=== PATIENT | male | born 1950 | race Caucasian/White ===

== ENCOUNTER 2017-10-29 21:07 | Emergency (ER) | payer OTHER ==
[~2017-10-29] VITALS: Ht 180.3 cm; Wt 118.4 kg
[~2017-10-29 21:07] MED LIST: ALL100 PO; BNC40 PO; CMD75 PO; ENOX120I SQ; GLC500 PO; HYDC25 PO; POTA-335 PO; [UNRECOGNIZED DRUG - CODE] PO
[2017-10-29 21:10] VITALS: TEMP 36.5; Ht 180.3 cm; Wt 118.4 kg
[2017-10-29 21:50] LABS: BASO % 0.5 %; BASO ABS # 0.04 K/uL (0-0.2); EOS % 2.2 %; EOS ABS # 0.17 K/uL (0-0.5); IG# 0.01 K/uL (0.00-0.02); LYMPH % 30.4 %; LYMPH ABS # 2.32 K/uL (1.2-3.4); MEAN CELL VOLUME 96.6 fL (80-100); MEAN CORPUSCULAR HEMOGLOBIN 34.5 pg (25-34); MEAN CORPUSCULAR HGB CONC 35.7 g/dl (32-36); MEAN PLATELET VOLUME 9.9 fL (7.4-10.4); MONO % 10.2 %; MONO ABS # 0.78 K/uL (0.11-0.59); NEUT % 56.6 %; NEUT ABS # 4.31 K/uL (1.4-6.5); PLATELET COUNT 182 K/uL (130-400); RED CELL DISTRIBUTION WIDTH CV 13.1 % (11.5-14.5); RED CELL DISTRIBUTION WIDTH SD 46.2 fL (36.4-46.3); WHITE BLOOD COUNT 7.63 K/uL (4.8-10.8)
[2017-10-29 22:07] LABS: INR 1.9 (0.9-1.1); PTT PATIENT 29.3 SECONDS (21.0-31.0)
[2017-10-29 22:09] LABS: ALBUMIN 3.8 gm/dl (3.4-5.0); ALT/SGPT 39 U/L (12-78); BLOOD UREA NITROGEN 13 mg/dl (7-18); CALCIUM 8.4 mg/dl (8.5-10.1); CARBON DIOXIDE 32 mmol/L (21-32); CREATININE 1.24 mg/dl (0.60-1.40); GLUCOSE 124 mg/dl (70-99); LIPASE 309 U/L (73-393); POTASSIUM 3.4 mmol/L (3.5-5.1); SODIUM 140 mmol/L (136-145)
[2017-10-29 22:15] LABS: ALKALINE PHOSPHATASE 41 U/L (45-117); AST/SGOT 44 U/L (15-37); CKMB 1.6 ng/ml (0.5-3.6); TOTAL PROTEIN 7.4 gm/dl (6.4-8.2)
--- NOTE | 2017-10-29 22:35 | DIAGNOSTIC IMAGING REPORT ---
CHEST ONE VIEW PORTABLE HISTORY: Evaluate Fever/Sepsis COMPARISON: Chest 06/07/2011. FINDINGS: The heart is mildly enlarged. The right lung is clear. There are a few linear density at the left lung base suggesting scarring or atelectasis. No focal lung consolidations to suggest pneumonia. No pleural effusions. No pneumothorax. IMPRESSION: Mild cardiomegaly and left basilar subsegmental atelectasis/scarring. Electronically signed by: Adama Cotto M.D. 10/29/2017 10:34 PM Dictated Date/Time: 10/29/2017 10:32 PM
[2017-10-29] MEDS ORDERED: OPTIRAY 320 IV PRN (23:45)
[2017-10-29] MEDS ORDERED: GLC/500 PO (23:45)
[2017-10-29] MEDS ORDERED: SILD100T PO (23:45)
[2017-10-29] MEDS ORDERED: ROSU5TAB PO (23:45)
[2017-10-29] MEDS ORDERED: CLB/200 PO (23:45)
[2017-10-29] MEDS ORDERED: RANI150T3 PO (23:45)
[2017-10-29] MEDS ORDERED: POTA1CAP53 PO (23:45)
[2017-10-29] MEDS ORDERED: ALL300 PO (23:45)
[2017-10-29] MEDS ORDERED: BNC40 PO (23:45)
[2017-10-29] MEDS ORDERED: WARF-237 PO ×2 (23:45)
[2017-10-29] MEDS ORDERED: MULT-190 PO (23:45)
[2017-10-29] MEDS ORDERED: HYDR25TA4 PO (23:45)
[2017-10-29] MEDS ORDERED: NEBI20TA2 PO (23:45)
[2017-10-29] MEDS ORDERED: OMEG100046 PO (23:45)
[2017-10-30] MEDS ORDERED: AMPICILLIN/SULBACTAM SOD INJ 3,000 MG in SODIUM CHLORIDE 0.9% 100ML 100 ML IV ONE (00:30)
[2017-10-30] MEDS ORDERED: AMOX875T PO (00:34)
[2017-10-30] MEDS ORDERED: ONDA4TAB10 SL (00:34)
--- NOTE | 2017-10-30 00:35 | EMERGENCY ROOM VISIT NOTE ---
History Report prepared by Alecia: Galen Peng Under the Supervision of: Dr. Guillaume Estrada D.O. First contact with patient: 21:18 Chief Complaint: CHEST PAIN Stated Complaint: CHEST PAIN, NAUSEA, SHORTNESS OF BREATH History of Present Illness The patient is a 67 year old male who presents to the Emergency Room with complaints of resolved chest pain that started at 1930. He rates his discomfort as a 5/10 in severity. The patient states that after eating dinner, he developed chest tightness that lasted for 15 minutes. He reports that his pain then became generalized and he developed neck pain. The patient reports he also developed nausea and shortness of breath. He reports that he took his blood pressure and heart rate, which were 180/100 and 55, respectively. The patient states he is now experiencing numbness in left cheek and left eye, but denies any vision changes. He also denies any chest pain with exertion earlier today since he was able to swim for 45 minutes this morning without any problems. 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 He reports that his last INR was 1.9 last week. Source of History: patient Onset: 1929 Position: chest Symptom Intensity: 5/10 Quality: other (tightness) Timing: resolved Associated Symptoms: + neck pain, + SOB, + nausea, + numbness Note: Associated symptoms: increased blood pressure, decreased heart rate Review of Systems See HPI for pertinent positives & negatives. A total of 10 systems reviewed and were otherwise negative. 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 Social History Smoking Status: Former Smoker Marital Status: Housing Status: lives with significant other Occupation Status: retired Current/Historical Medications Scheduled Allopurinol (Allopurinol), 300 MG PO QAM Amoxicillin & Pot Clavulanate (Augmentin 875-125 mg), 875 MG PO BID Celecoxib (CeleBREX), 200 MG PO DAILY Hydrochlorothiazide (Hctz), 25 MG PO QAM Metformin Hcl (Glucophage), 500 MG PO DAILY Nebivolol Hcl (Bystolic), 20 MG PO DAILY Ocuvite Preservision (Ocuvite Preservision), 1 TAB PO DAILY Olmesartan Medoxomil (Benicar), 40 MG PO DAILY Drain-3 Fatty Acids (Drain 3), 1 CAP PO BID Ondasetron Odt (Zofran Odt), 4 MG SL Q6H Potassium Chloride (Klor-Con Sprinkle), 20 MEQ PO DAILY Rosuvastatin Calcium (Crestor), 5 MG PO DAILY Warfarin Sod (Coumadin), 10 MG PO 5XWK Warfarin Sod (Coumadin), 5 MG PO 2XWK Scheduled PRN Ranitidine Hcl (Zantac), 150 MG PO DIRECTED PRN for HEARTBURN Sildenafil Citrate (Viagra), 100 MG PO PRN PRN for PRN Allergies Coded Allergies: Sulfa Drugs (Verified Allergy, Intermediate, RASH,SWELLING, 10/29/17) Physical Exam Vital Signs Date Time Temp Pulse Resp B/P (MAP) Pulse Ox O2 Delivery O2 Flow Rate FiO2 10/30/17 01:12 51 10/30/17 01:01 50 16 182/97 97 Room Air 10/30/17 00:00 50 20 197/83 96 Room Air 10/29/17 23:34 52 20 186/97 97 Room Air 10/29/17 23:00 53 19 182/91 96 Room Air 10/29/17 22:30 54 16 159/92 95 Room Air 10/29/17 22:05 50 14 159/88 96 Room Air 10/29/17 21:47 54 10/29/17 21:27 97 Room Air 10/29/17 21:10 36.5 52 20 205/89 96 Room Air Physical Exam VITAL SIGNS: were reviewed as above. GENERAL:Non-toxic in appearance. SKIN: Warm dry and pink. HEAD: Normocephalic and atraumatic. OROPHARYNX: Is clear and moist NECK: Supple without lymphadenopathy or meningismus. LUNGS: clear. HEART: Regular rate and rhythm. ABDOMEN: Soft and nontender. EXTREMITIES: Warm and well perfused. NEUROLOGICALLY: Awake alert and oriented without focal deficit. Cranial nerves 2 -12 are intact. There is no pronator drift. Cerebellar testing is within normal limits. There is no nystagmus. There is no facial droop. Speech is clear. Vision is grossly normal. MUSCULOSKELETAL: Good muscle tone. No evidence of trauma. Medical Decision & Procedures ER Provider Diagnostic Interpretation: Radiology results as stated below per my review and radiologist interpretation: CHEST ONE VIEW PORTABLE HISTORY: Evaluate Fever/Sepsis COMPARISON: Chest 06/07/2011. FINDINGS: The heart is mildly enlarged. The right lung is clear. There are a few linear density at the left lung base suggesting scarring or atelectasis. No focal lung consolidations to suggest pneumonia. No pleural effusions. No pneumothorax. IMPRESSION: Mild cardiomegaly and left basilar subsegmental atelectasis/scarring. Electronically signed by: Adama Cotto M.D. 10/29/2017 10:34 PM Dictated Date/Time: 10/29/2017 10:[address] HEAD: No acute intracranial abnormality identified. Mild chronic small vessel ischemic disease and cerebral volume loss. Bilateral lens implants. Mild mucosal thickening in the ethmoid air cells. Mild atherosclerotic calcifications of the intracranial vasculature. Radiologist: Nader Douglas M.D. . CT FACIAL: Fat stranding and soft tissue swelling over the left maxilla and left mandible, nonspecific. No abscess identified. No significant lymphadenopathy. Nonspecific mild skin thickening in the right frontal region. Mild mucosal thickening in the ethmoid air cells. Mild mucosal thickening in the left maxillary sinus. Atherosclerotic calcifications of the carotid arteries. Radiologist: Nader Pickens M.D. Laboratory Results 10/29/17 21:25 Red Blood Count 4.35, Mean Corpuscular Volume 96.6, Mean Corpuscular Hemoglobin 34.5, Mean Corpuscular Hemoglobin Concent 35.7, Mean Platelet Volume 9.9, Neutrophils (%) (Auto) 56.6, Lymphocytes (%) (Auto) 30.4, Monocytes (%) (Auto) 10.2, Eosinophils (%) (Auto) 2.2, Basophils (%) (Auto) 0.5, Neutrophils # (Auto ) 4.31, Lymphocytes # (Auto) 2.32, Monocytes # (Auto) 0.78, Eosinophils # (Auto ) 0.17, Basophils # (Auto) 0.04 10/29/17 21:25 Test 10/29/17 21:25 White Blood Count 7.63 K/uL (4.8-10.8) Red Blood Count 4.35 M/uL (4.7-6.1) Hemoglobin 15.0 g/dL (14.0-18.0) Hematocrit 42.0 % (42-52) Mean Corpuscular Volume 96.6 fL (80-100) Mean Corpuscular Hemoglobin 34.5 pg (25-34) Mean Corpuscular Hemoglobin Concent 35.7 g/dl (32-36) Platelet Count 182 K/uL (130-400) Mean Platelet Volume 9.9 fL (7.4-10.4) Neutrophils (%) (Auto) 56.6 % Lymphocytes (%) (Auto) 30.4 % Monocytes (%) (Auto) 10.2 % Eosinophils (%) (Auto) 2.2 % Basophils (%) (Auto) 0.5 % Neutrophils # (Auto) 4.31 K/uL (1.4-6.5) Lymphocytes # (Auto) 2.32 K/uL (1.2-3.4) Monocytes # (Auto) 0.78 K/uL (0.11-0.59) Eosinophils # (Auto) 0.17 K/uL (0-0.5) Basophils # (Auto) 0.04 K/uL (0-0.2) RDW Standard Deviation 46.2 fL (36.4-46.3) RDW Coefficient of Variation 13.1 % (11.5-14.5) Immature Granulocyte % (Auto) 0.1 % Immature Granulocyte # (Auto) 0.01 K/uL (0.00-0.02) Prothrombin Time 19.5 SECONDS (9.0-12.0) Prothromb Time International Ratio 1.9 (0.9-1.1) Activated Partial Thromboplast Time 29.3 SECONDS (21.0-31.0) Partial Thromboplastin Ratio 1.1 Anion Gap 6.0 mmol/L (3-11) Est Creatinine Clear Calc Drug Dose 73.6 ml/min Estimated GFR () 68.3 Estimated GFR (Non- 58.9 BUN/Creatinine Ratio 10.1 (10-20) Calcium Level 8.4 mg/dl (8.5-10.1) Total Bilirubin 0.7 mg/dl (0.2-1) Direct Bilirubin 0.3 mg/dl (0-0.2) Aspartate Amino Transf (AST/SGOT) 44 U/L (15-37) Alanine Aminotransferase (ALT/SGPT) 39 U/L (12-78) Alkaline Phosphatase 41 U/L (45-117) Total Creatine Kinase 140 U/L (39-308) Creatine Kinase MB 1.6 ng/ml (0.5-3.6) Creatine Kinase MB Ratio 1.1 (0-3.0) Troponin I < 0.015 ng/ml (0-0.045) Total Protein 7.4 gm/dl (6.4-8.2) Albumin 3.8 gm/dl (3.4-5.0) Lipase 309 U/L (73-393) Laboratory results as stated above per my review. Medications Administered Medications (Trade) Dose Ordered Sig/Ky Route Start Time Stop Time Status Last Admin Dose Admin Ampicillin Sodium/ Sulbactam Sodium 3000 mg/Sodium Chloride 108 ml @ 200 mls/hr ONE ONCE IV 10/30/17 00:30 10/30/17 01:02 DC 10/30/17 00:33 200 MLS/HR ECG Per My Interpretation Indication: chest pain Rate (beats per minute): 56 Rhythm: sinus bradycardia Findings: 1st degree AV block, no ectopy, other (No ST elevation) Change: REPEAT EKG: Sinus bradycardia with a rate of 52. 1st degree AV block. No ST elevation or ectopy. ED Course 2120: Previous medical records were reviewed. The patient was evaluated in room C10. A complete history and physical examination was performed. 2310: I reevaluated the patient and he is now experiencing left sided facial swelling. I will order a head and facial CT. 0022: I reevaluated the patient. He reports that he feels a little better after vomiting. I updated him on his CT results and will order antibiotics for his facial infection. I discussed treatment plan, which he agrees to. The patient will be ready for discharge following medication administration. 0030: Ordered Ampicillin Sodium/Sulbactam Sodium 3000 mg/Sodium Chloride 108 ml @ 200 mls/hr IV. Medical Decision the differential was considered includes acute myocardial infarction, acute coronary syndrome, myocarditis, pericarditis, pericardial effusions /tamponade, esophageal perforation, thoracic aortic dissection, pulmonary embolism, pneumonia, pneumothorax, pancreatitis, shingles, acute cholecystitis, perforated abdominal viscus. This is a 67-year-old male who presents to the ED with a chief complaint of of a dull chest pain that started immediately after dinner. The patient had some associated nausea. Denies vomiting. He also had some mild associated shortness of breath. He states that the pain was substernal and then developed all over the chest. It lasted for about 15 minutes. It started around 7:30 PM. The patient also reports some tingling in the left side of his face. He subsequently developed left facial swelling during his stay. He does have some dental issues for which he has seen an pharmacist technician 2 weeks ago. 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 His INR last week was 1.9. He denies any focal weakness. The patient's initial EKG shows a sinus bradycardia rate of 56 with a first-degree AV block. Second EKG was performed that was similar. No changes during his stay. Chest x-ray did not show acute process. CBC and complete metabolic panel was unremarkable. Troponin and lipase were normal. INR today is 1.9. A CT scan of the brain was negative for acute process. A CT scan of the face revealed some fat stranding in the left maxillary and mandibular areas consistent with his exam and likely related to infection. The patient did vomit while he was here and stated that that helped him to feel somewhat better. He did not want any nausea medication because he felt like vomiting helped his symptoms. After an IV dose of Unasyn, the patient was felt to be stable for discharge. He was given a prescription for Augmentin and Zofran. Medication Reconcilliation Current Medication List: was personally reviewed by me Blood Pressure Screening Patient's blood pressure: Elevated blood pressure Blood pressure disposition: Referred to PCP Impression Primary Impression: Substernal precordial chest pain Additional Impression: Facial cellulitis Scribe Attestation The scribe's documentation has been prepared under my direction and personally reviewed by me in its entirety. I confirm that the note above accurately reflects all work, treatment, procedures, and medical decision making performed by me. Departure Information Dispostion Home / Self-Care Prescriptions Ondasetron Odt (ZOFRAN ODT) 4 Mg Tab 4 MG SL Q6H for Nausea, #15 TAB Prov: Guillaume Estrada D.Hortensia. 10/30/17 Amoxicillin & Pot Clavulanate (Augmentin 875-125 mg) 1 Tab Tab 875 MG PO BID, #14 TAB Prov: Guillaume Estrada D.O. 10/30/17 Referrals No Doctor, Assigned (PCP) Patient Instructions My [facility] Additional Instructions Augmentin as prescribed for facial swelling/infection. Zofran: Allow one tablet to dissolve under the tongue every 6 hours as needed for nausea or vomiting. Follow-up with your dentist/pharmacist technician for further evaluation as well as your PCP. Follow-up with your doctor for further care and evaluation in 1-2 days. Return to the emergency department for worsening or new symptoms or any concerns. You have been examined and treated today on an emergency basis only. This is not a substitute for, or an effort to provide, complete comprehensive medical care. It is impossible to recognize and treat all injuries or illnesses in a single emergency department visit. It is therefore important that you follow up closely with your doctor. Call as soon as possible for an appointment. Problem Qualifiers
[2017-10-30 01:01] VITALS: BP 182/97; O2SAT 97
[2017-10-30 01:12] VITALS: PULSE 51
--- NOTE | 2017-10-30 06:32 | DIAGNOSTIC IMAGING REPORT ---
CT OF THE HEAD WITHOUT CONTRAST CLINICAL HISTORY: Chest pain. Left facial swelling. COMPARISON STUDY: No previous studies for comparison. TECHNIQUE: Helical axial images of the head were obtained without IV contrast. Automated exposure control was utilized for the study. A dose lowering technique was utilized adhering to the principles of ALARA. FINDINGS: No acute intracranial hemorrhage, midline shift or mass effect is present. Ventricular system is normal. Basilar cisterns are patent. There are no extra-axial collections. There are no findings to suggest acute dural sinus thrombosis or acute territorial infarct. There is mild mucosal thickening of the ethmoid sinuses. There are no significant calvarial abnormalities. IMPRESSION: No acute intracranial findings. Electronically signed by: Víctor Catherine M.D. 10/30/2017 6:31 AM Dictated Date/Time: 10/30/2017 6:29 AM
--- NOTE | 2017-10-30 06:40 | DIAGNOSTIC IMAGING REPORT ---
CT FACIAL-MAXILLOFACIAL WITH CT DOSE: 820.06 mGy.cm CLINICAL HISTORY: left facial swelling TECHNIQUE: The patient was scanned in a dynamic helical fashion during intravenous administration of 93 cc Optiray 320. A dose lowering technique was utilized adhering to the principles of ALARA. COMPARISON STUDY: None. FINDINGS: There is no hydrocephalus. No orbital masses are visualized. No salivary gland masses are visualized. There is no pathologic adenopathy. There is moderate mucosal thickening within the left maxillary sinus. There there is mild mucosal disease within the ethmoid and frontal sinuses. There is left maxillary soft tissue swelling. No mucosal space masses are visualized. No soft tissue abscesses are visualized. There is significant artifact from dental amalgam. There is a focus of nonspecific skin thickening within the right frontal region. IMPRESSION: 1. Left premaxillary and perimandibular soft tissue swelling 2. No evidence of abscess 3. No evidence of pathologic adenopathy 4. Paranasal sinus disease 5. Nonspecific skin thickening in the right frontal region Electronically signed by: Sunny Canchola M.D. 10/30/2017 6:39 AM Dictated Date/Time: 10/30/2017 6:34 AM
== END 2017-10-30 01:18 | disposition home or self-care (01) ==
LOC: C.EDB 21:07 → C.EDC 10-30 01:18
DX: R07.2 Precordial pain (principal); L03.211 Cellulitis of face; I10 Essential (primary) hypertension; Z86.711 Personal history of pulmonary embolism; Z79.01 Long term (current) use of anticoagulants; Z51.81 Encounter for therapeutic drug level monitoring; Z87.891 Personal history of nicotine dependence; Z88.2 Allergy status to sulfonamides